=== PATIENT | female | born 1985 | race Caucasian/White ===

== ENCOUNTER 2017-02-14 11:58 | Emergency (ER) | payer MEDICAID, OTHER ==
[~2017-02-14] VITALS: Ht 160 cm; Wt 70.5 kg
[~2017-02-14 11:58] MED LIST: HYDR-569 PO; METH-360 PO; METR500T PO; NAPR-1144 PO
[2017-02-14] MEDS ORDERED: sulfamethoxazole/trimethoprim DS (800/160mg) tablet PO ONE (13:35)
[2017-02-14] MEDS ORDERED: SULF1TAB49 PO (13:37)
[2017-02-14 13:47] VITALS: BP 110/69
== END 2017-02-14 13:48 | disposition home or self-care (01) ==
LOC: ER 11:59
DX: L02.413 Cutaneous abscess of right upper limb (principal); F11.10 Opioid abuse, uncomplicated; I10 Essential (primary) hypertension; F17.200 Nicotine dependence, unspecified, uncomplicated; Z98.890 Other specified postprocedural states; Z98.51 Tubal ligation status; Z88.0 Allergy status to penicillin
CPT/HCPCS: 99282; 99283

== ENCOUNTER 2017-05-17 07:52 | Emergency (ER) | payer MEDICAID, OTHER ==
[~2017-05-17] VITALS: Ht 5283.9 cm; Wt 71.0 kg
[~2017-05-17 07:52] MED LIST changes: -METR500T PO
[2017-05-17 07:53] VITALS: BP 147/89
[2017-05-17] MEDS ORDERED: ketorolac trometh inj. 60 MG/2 ML VIAL IM STA (08:06)
[2017-05-17] MEDS ORDERED: CIPR10DR LEFT EAR (08:08)
[2017-05-17] MEDS ORDERED: CLIN150C2 PO (08:08)
[2017-05-17] MEDS ORDERED: ketorolac trometh. 30mg/ml inj. IM STA (08:10)
== END 2017-05-17 08:33 | disposition home or self-care (01) ==
LOC: ER 07:52
DX: K04.7 Periapical abscess without sinus (principal); I10 Essential (primary) hypertension; Z88.0 Allergy status to penicillin; Z56.0 Unemployment, unspecified
CPT/HCPCS: 96372; 99283; J1885; 99284

== ENCOUNTER 2018-06-22 14:16 | Emergency (ER) | payer MEDICAID, OTHER ==
[~2018-06-22] VITALS: Ht 160 cm; Wt 61.4 kg
[~2018-06-22 14:16] MED LIST changes: +HYDR-4383 PO; -HYDR-569 PO
[2018-06-22] MEDS ORDERED: IBUP-1984 PO (16:12)
[2018-06-22 16:22] VITALS: BP 111/77
== END 2018-06-22 16:24 | disposition home or self-care (01) ==
LOC: ER 14:17
DX: M25.531 Pain in right wrist (principal); I10 Essential (primary) hypertension; F11.90 Opioid use, unspecified, uncomplicated; Z86.69 Personal history of other diseases of the nervous system and sense organs; Z98.51 Tubal ligation status; Z98.890 Other specified postprocedural states; Z56.0 Unemployment, unspecified; Z88.0 Allergy status to penicillin; Z79.899 Other long term (current) drug therapy; W18.39XA Other fall on same level, initial encounter; Y93.89 Activity, other specified; Y92.89 Other specified places as the place of occurrence of the external cause; Y99.8 Other external cause status
CPT/HCPCS: 73110; 73130; 99283

== ENCOUNTER 2018-08-28 20:31 | Emergency (ER) | payer MEDICAID ==
[~2018-08-28] VITALS: Ht 160 cm; Wt 57.1 kg
[2018-08-28 20:47] VITALS: BP 122/78
[2018-08-28] MEDS ORDERED: IBUP-1984 PO (23:12)
[2018-08-28] MEDS ORDERED: ibuprofen tablet 400 MG TABLET PO ONE (23:15)
== END 2018-08-28 23:48 | disposition home or self-care (01) ==
LOC: ER 20:32
DX: S51.011A Laceration without foreign body of right elbow, initial encounter (principal); I10 Essential (primary) hypertension; F11.90 Opioid use, unspecified, uncomplicated; Z86.69 Personal history of other diseases of the nervous system and sense organs; Z98.51 Tubal ligation status; Z98.890 Other specified postprocedural states; Z56.0 Unemployment, unspecified; Z88.0 Allergy status to penicillin; Z79.899 Other long term (current) drug therapy; W22.8XXA Striking against or struck by other objects, initial encounter; Y93.89 Activity, other specified; Y92.89 Other specified places as the place of occurrence of the external cause; Y99.8 Other external cause status
CPT/HCPCS: 12001; 73080; 99283

== ENCOUNTER 2019-03-12 11:27 | Emergency (ER) | payer MEDICAID ==
[~2019-03-12] VITALS: Ht 160 cm; Wt 72.7 kg
[2019-03-12 11:46] VITALS: BP 125/70
[2019-03-12] MEDS ORDERED: azithromycin 250mg tablet PO ONE (12:05)
[2019-03-12] MEDS ORDERED: CefTRIAXone 1000mg IM Kit (w/lidocaine diluent) IM ONE (12:05)
--- NOTE | 2019-03-12 12:40 | NUR ---
LAB CALLED THEY WILL START ON URINE NOW.
[2019-03-12 12:44] LABS: CLARITY,URINE CLOUDY (Clear); COLOR,URINE YELLOW (Yellow); GLUCOSE, URINE NEGATIVE (Neg); KETONES,URINE NEGATIVE (Neg); LEUKOCYTE ESTERASE ,URINE TRACE (Neg); NITRITES, URINE POSITIVE (Neg); OCCULT BLOOD,URINE MODERATE (Neg); PH,URINE 6.5 (4.8-8.0); PROTEIN,URINE 30 mg/dl (Neg); UROBILINOGEN,URINE 0.2 E.U/dL (0.2-1.0)
[2019-03-12 12:45] LABS: UA COLLECTION TYPE CLN CATCH MIDSTREAM; URINE HCG NEGATIVE (NEG)
[2019-03-12 12:51] LABS: BACTERIA,URINE 4+ /HPF (Neg); MUCUS STRANDS MODERATE /LPF (Neg); SQUAMOUS EPITHELIAL CELL,UR FEW /LPF (FEW); WBC CLUMPS,URINE MODERATE /HPF (NEGATIVE); WBC,URINE 30-50 /HPF (0-4)
[2019-03-12] MEDS ORDERED: SULF1TAB49 PO (12:58)
--- NOTE | 2019-03-16 09:52 | NUR ---
NO PHONE NUMBER LISTED FOR PT. I CALLED HER MOTHER STEPHANIE MATIAS. COULD NOT LEAVE A MESSAGE. VOICE MAILBOX FULL
--- NOTE | 2019-03-17 07:55 | NUR ---
called dalia clayton's mother her phone keeps cutting out. she is going to look up guille's phone number and write it down i will call her back in 5 minutes
--- NOTE | 2019-03-17 08:11 | NUR ---
called and left a message on the number that mother gave us. waiting call back
== END 2019-03-12 13:17 | disposition home or self-care (01) ==
LOC: ER 11:28
DX: N39.0 Urinary tract infection, site not specified (principal); N89.8 Other specified noninflammatory disorders of vagina; I10 Essential (primary) hypertension; F17.200 Nicotine dependence, unspecified, uncomplicated; F15.90 Other stimulant use, unspecified, uncomplicated; F11.90 Opioid use, unspecified, uncomplicated; Z86.69 Personal history of other diseases of the nervous system and sense organs; Z98.51 Tubal ligation status; Z98.890 Other specified postprocedural states; Z56.0 Unemployment, unspecified
CPT/HCPCS: 36415; 81001; 81025; 87077; 87088; 87186; 87491; 87591; 96372; 99283; J0696

== ENCOUNTER 2020-03-23 14:09 | Emergency (ER) | payer MEDICAID ==
[~2020-03-23] VITALS: Ht 160 cm; Wt 76.4 kg
[2020-03-23 14:15] VITALS: BP 140/78
[2020-03-23] MEDS ORDERED: CLIN300C54 PO (15:35)
[2020-03-23] MEDS ORDERED: IBUP-1984 PO (15:35)
== END 2020-03-23 15:59 | disposition home or self-care (01) ==
LOC: ER 14:10
DX: K04.7 Periapical abscess without sinus (principal); I10 Essential (primary) hypertension; F15.90 Other stimulant use, unspecified, uncomplicated; F11.90 Opioid use, unspecified, uncomplicated; Z98.51 Tubal ligation status; Z86.69 Personal history of other diseases of the nervous system and sense organs; Z98.890 Other specified postprocedural states; Z56.0 Unemployment, unspecified; Z88.0 Allergy status to penicillin; Z79.2 Long term (current) use of antibiotics; Z79.899 Other long term (current) drug therapy
CPT/HCPCS: 99283

== ENCOUNTER 2020-06-20 10:20 | Emergency (ER) | payer MEDICAID ==
[~2020-06-20] VITALS: Ht 160 cm; Wt 69.2 kg
[2020-06-20 10:28] VITALS: BP 123/77
[2020-06-20] MEDS ORDERED: TOBR5DRO2 OP (11:08)
== END 2020-06-20 11:32 | disposition home or self-care (01) ==
LOC: ER 10:20
DX: H10.9 Unspecified conjunctivitis (principal); G43.909 Migraine, unspecified, not intractable, without status migrainosus; I10 Essential (primary) hypertension; F11.90 Opioid use, unspecified, uncomplicated; F15.90 Other stimulant use, unspecified, uncomplicated; Z87.81 Personal history of (healed) traumatic fracture; Z56.0 Unemployment, unspecified; Z98.891 History of uterine scar from previous surgery; Z98.51 Tubal ligation status; Z88.0 Allergy status to penicillin; Z79.899 Other long term (current) drug therapy; Z79.2 Long term (current) use of antibiotics
CPT/HCPCS: 99283

== ENCOUNTER 2020-10-28 12:06 | Inpatient (IN) | payer MEDICAID ==
[~2020-10-28] VITALS: Ht 160 cm; Wt 63.6 kg
[~2020-10-28 12:06] MED LIST changes: +TOBR5DRO2 OP
[2020-10-28] MEDS ORDERED: vancomycin/NS 1 GM ADD-VANTAGE 250 ML IV ONE (13:35)
--- NOTE | 2020-10-28 13:53 | NUR ---
ATTEMPTED IV BY 2 RN AND 2 ASSISTANT FOREMAN WITH UNABLE TO GET IV AND LABS. [facility] NOTIFIED AND AWARE. STATED DR PEREZ WILL DO AN ULTRASOUND IV WHEN ABLE. PT HAS NO SIGNS OF DISTRESS.
[2020-10-28] MEDS ORDERED: normal saline 1000ML IV soln IV ONE (14:05)
[2020-10-28] MEDS ORDERED: iohexol 350MG/ML 100ml bottle IV ONE (14:59)
[2020-10-28 15:20] LABS: BASOPHILS % (AUTO) 0.2 % (0-1); EOSINOPHILS % (AUTO) 0 % (0-6); HEMATOCRIT 36.4 % (35.0-45.0); HEMOGLOBIN 11.9 g/dl (12.0-16.0); LYMPHOCYTES # (AUTO) 1.5 X10'3 (1.1-4.8); LYMPHOCYTES % (AUTO) 5.4 % (21-51); MEAN CORPUSCULAR HEMOGLOBIN 28.7 PG (27.0-31.0); MEAN CORPUSCULAR HGB CONC 32.8 g/dL (33.0-36.5); MEAN CORPUSCULAR VOLUME 87.3 FL (78-98); MEAN PLATELET VOLUME 8.2 FL (7.4-10.4); MONOCYTES # (AUTO) 1.3 X10'3 (0-0.9); MONOCYTES % (AUTO) 4.8 % (2-12); NEUTROPHILS # (AUTO) 24.6 X10'3 (1.8-7.7); NEUTROPHILS % (AUTO) 89.6 % (42-75); PLATELET COUNT 231 X10'3 (140-440); RED BLOOD COUNT 4.17 X10'6 (4.20-5.60); RED CELL DISTRIBUTION WIDTH 15.3 % (11.5-14.5)
[2020-10-28 15:24] LABS: WHITE BLOOD COUNT 27.4 X10'3 (4.5-11.0)
[2020-10-28] MEDS ORDERED: CefTRIAXone 2gm/D5W 50ml BAG 50 ML IV ONE (15:30)
[2020-10-28 15:35] LABS: ALANINE AMINOTRANSFERASE 31 U/L (12-78); ALBUMIN 2.9 G/DL (3.4-5.0); ALBUMIN/GLOBULIN RATIO 0.6 (1.1-1.5); ALKALINE PHOSPHATASE 85 IU/L (46-116); ANION GAP 10 (8-16); ASPARTATE AMINO TRANSFERASE 16 U/L (10-37); BILIRUBIN,TOTAL 1.1 MG/DL (0.1-1.0); BLOOD UREA NITROGEN 9 MG/DL (7-18); BUN/CREATININE RATIO 11.7 (6.6-38.0); CALCIUM 8.6 MG/DL (8.5-10.1); CHLORIDE 98 MMOL/L (99-107); CREATININE 0.77 MG/DL (0.40-0.90); GLUCOSE 103 MG/DL (70-104); POTASSIUM 3.3 MMOL/L (3.5-5.1); SODIUM 131 MMOL/L (135-145); TOTAL CARBON DIOXIDE 22.7 MMOL/L (24-32); TOTAL PROTEIN 7.9 G/DL (6.4-8.2); eGFR 86 ML/MIN
[2020-10-28 16:01] LABS: ANISOCYTOSIS 1+; PLATELET ESTIMATE NORMAL; TOTAL CELLS COUNTED 100
[2020-10-28] MEDS ORDERED: azithromycin/NS 500mg/250ml 250 ML IV ONE (17:30)
[2020-10-28] MEDS ORDERED: magnesium Cl slow-release 64mg tablet PO PRN (17:40)
[2020-10-28] MEDS ORDERED: potassium Cl 20 mEq SR tablet PO PRN ×2 (17:40)
[2020-10-28] MEDS ORDERED: magnesium 2GM in 50ml NS 50 ML IV PRN (17:40)
[2020-10-28] MEDS ORDERED: magnesium 4gm in 100ml NS 100 ML IV PRN (17:40)
[2020-10-28] MEDS ORDERED: LORazepam 0.5 MG tablet PO PRN (17:40)
[2020-10-28] MEDS ORDERED: LORazepam 2 mg/ml vial IV PRN (17:40)
[2020-10-28] MEDS ORDERED: magnesium hydroxide 30ml (MOM) UD suspension PO PRN (17:40)
[2020-10-28] MEDS ORDERED: mag hydrox/Alum hydrox/simeth 30ml oral suspension PO PRN (17:40)
[2020-10-28] MEDS ORDERED: ondansetron/PF 4mg/2ml inj IV PRN (17:40)
[2020-10-28] MEDS ORDERED: HYDROcodone/acetaminophen 5mg/325mg tablet PO PRN (17:40)
[2020-10-28] MEDS ORDERED: potassium Cl 40MEQ/1/2NS 520ml 520 ML IV PRN ×2 (17:40)
[2020-10-28] MEDS ORDERED: acetaminophen 325mg tablet PO PRN ×2 (17:40)
[2020-10-28] MEDS ORDERED: HYDROmorphone inj. 0.5 MG/0.5 ML DISP.SYRIN IV PRN (17:40)
[2020-10-28 17:51] LABS: CLARITY,URINE SLIGHTLY CLOUDY (Clear); COLOR,URINE YELLOW (Yellow); GLUCOSE, URINE NEGATIVE (Neg); KETONES,URINE 40 mg/dl (Neg); NITRITES, URINE POSITIVE (Neg); OCCULT BLOOD,URINE LARGE (Neg); PROTEIN,URINE TRACE mg/dl (Neg); UA COLLECTION TYPE CLN CATCH MIDSTREAM
[2020-10-28 17:52] LABS: LEUKOCYTE ESTERASE ,URINE NEGATIVE (Neg); UROBILINOGEN,URINE 0.2 E.U/dL (0.2-1.0)
[2020-10-28] MEDS ORDERED: morphine 4 MG/ML inj SYRINge IV ONE ×2 (17:55→19:00)
[2020-10-28] MEDS ORDERED: ondansetron/PF 4mg/2ml inj IV ONE ×2 (17:55→19:00)
[2020-10-28 17:59] LABS: BACTERIA,URINE FEW /HPF (Neg); MUCUS STRANDS FEW /LPF (Neg); SQUAMOUS EPITHELIAL CELL,UR MANY /LPF (FEW)
[2020-10-28 18:00] LABS: URINE AMPHETAMINE SCREEN POSITIVE (Neg); URINE BARBITUATE SCREEN NEGATIVE (Neg); URINE BENZODIAZEPINES SCREEN NEGATIVE (Neg); URINE CANNABINOID SCREEN NEGATIVE (Neg); URINE COCAINE SCREEN NEGATIVE (Neg); URINE METHADONE SCREEN NEGATIVE (Neg); URINE OPIATE SCREEN POSITIVE (Neg); URINE PHENCYCLIDINE SCREEN NEGATIVE (Neg)
[2020-10-28] MEDS ORDERED: NO HOME MEDS (18:04)
[2020-10-28] MEDS ORDERED: vancomycin/NS 1 GM ADD-VANTAGE 250 ML X 1 DOSE IV ONE (18:20)
[2020-10-28 18:31] LABS: PARTIAL THROMBOPLASTIN TIME 32 SECONDS (22-32)
[2020-10-28] MEDS ORDERED: ipratropium/albuterol 3ml nebule NEB ONE (19:05)
[2020-10-28] MEDS: docusate sod 100mg capsule PO SCH (19:17)
[2020-10-28] MEDS: normal saline 1000ml 1,000 ML IV SCH (19:18)
[2020-10-28] MEDS: K and/or MAG REPLACEMENT MC SCH (20:00)
[2020-10-28 20:49] LABS: ABG BASE EXCESS -5.4 mmol/L (-2.0-2.0); ABG HCO3 16.3 mmol/L (22.0-26.0); ABG OXYGEN SATURATION 90.7 % (94-97); ABG PCO2 (T) 23.5 mmHg (32.0-45.0); ABG PO2 (T) 64.3 mmHg (75.0-100.0); ALLEN'S TEST POSITIVE; FCOHb 0.3 % (0.0-3.9); FLOW 3 L/min; FO2Hb 90.4 % (94-97)
[2020-10-28] MEDS ORDERED: temazepam 15mg capsule PO PRN (21:00)
[2020-10-29 02:55] LABS: ALANINE AMINOTRANSFERASE 22 U/L (12-78); ALBUMIN 2.3 G/DL (3.4-5.0); ALBUMIN/GLOBULIN RATIO 0.5 (1.1-1.5); ALKALINE PHOSPHATASE 78 IU/L (46-116); ANION GAP 10 (8-16); ASPARTATE AMINO TRANSFERASE 10 U/L (10-37); BASOPHILS % (AUTO) 0.1 % (0-1); BILIRUBIN,TOTAL 0.8 MG/DL (0.1-1.0); BLOOD UREA NITROGEN 9 MG/DL (7-18); CALCIUM 7.9 MG/DL (8.5-10.1); CHLORIDE 101 MMOL/L (99-107); CREATININE 0.82 MG/DL (0.40-0.90); EOSINOPHILS % (AUTO) 0 % (0-6); GLUCOSE 110 MG/DL (70-104); LYMPHOCYTES # (AUTO) 1.6 X10'3 (1.1-4.8); LYMPHOCYTES % (AUTO) 6.6 % (21-51); MEAN CORPUSCULAR HEMOGLOBIN 29.5 PG (27.0-31.0); MEAN CORPUSCULAR HGB CONC 34.4 g/dL (33.0-36.5); MEAN CORPUSCULAR VOLUME 85.8 FL (78-98); MEAN PLATELET VOLUME 8.4 FL (7.4-10.4); MONOCYTES % (AUTO) 4.2 % (2-12); NEUTROPHILS # (AUTO) 21.7 X10'3 (1.8-7.7); NEUTROPHILS % (AUTO) 89.1 % (42-75); PLATELET COUNT 203 X10'3 (140-440); POTASSIUM 3.2 MMOL/L (3.5-5.1); RED BLOOD COUNT 3.73 X10'6 (4.20-5.60); RED CELL DISTRIBUTION WIDTH 15.2 % (11.5-14.5); SODIUM 135 MMOL/L (135-145); TOTAL CARBON DIOXIDE 23.8 MMOL/L (24-32); TOTAL PROTEIN 7.1 G/DL (6.4-8.2); WHITE BLOOD COUNT 24.4 X10'3 (4.5-11.0); eGFR 80 ML/MIN
[2020-10-29 02:57] LABS: MAGNESIUM 1.9 MG/DL (1.5-2.4)
[2020-10-29] MEDS: docusate sod 100mg capsule PO SCH (08:00)
[2020-10-29] MEDS: K and/or MAG REPLACEMENT MC SCH ×2 (08:00→20:00)
[2020-10-29] MEDS: CefTRIAXone/D5W-Rocephin 1gm 50 ML IV SCH (08:39)
[2020-10-29] MEDS: vancomycin/NS 1 GM ADD-VANTAGE 250 ML IV SCH ×2 (08:39→21:34)
[2020-10-29] MEDS: normal saline 1000ml 1,000 ML IV SCH ×2 (08:40→21:34)
[2020-10-29] MEDS: enoxaparin 40mg/0.4ml syringe SUBCUT SCH (08:48)
--- NOTE | 2020-10-29 09:30 | NUR ---
Pt keeps taking monitor leads and VSs equip off. Pt had taken off NC O2 and when placed back on pulse ox monitor pt with sat 78%. Pt placed on 5L O2 NC and pt sats improving with sat of 96%. Received phone call from hospitalist Dr. Ernandez and was updated on pt status.
[2020-10-29] MEDS ORDERED: guaiFENesin ER 600mg tablet PO SCH (09:35)
[2020-10-29] MEDS: azithromycin/NS 500mg/250ml 250 ML IV SCH (10:16)
[2020-10-29 11:00] VITALS: BP 117/74
[2020-10-29] MEDS: morphine 4 MG/ML inj SYRINge IV PRN ×2 (12:06→17:30)
[2020-10-29 15:00] VITALS: BP 101/68
[2020-10-29] MEDS ORDERED: ipratropium/albuterol 3ml nebule NEB PRN (15:00)
[2020-10-29] MEDS: ipratropium/albuterol 3ml nebule NEB SCH ×2 (15:21→19:45)
--- NOTE | 2020-10-29 17:30 | NUR ---
Attempted to DART patient but she said not now and went back to sleep
[2020-10-29 18:00] VITALS: BP 98/60
[2020-10-29 22:00] VITALS: BP 104/69
--- NOTE | 2020-10-29 22:18 | NUR ---
PAGER ID: [phone] MESSAGE: Lora Cardenas 34F rm #[id number] dx Pnu, sepsis, resp fail. Hx Polysubstance abuse Pt was found smoking an unknown substance from a piece of foil. HR increased from 60s-90s. Security is in the room. Claudette [facility] [id number]
[2020-10-30] MEDS: ipratropium/albuterol 3ml nebule NEB SCH ×4 (00:01→11:00)
[2020-10-30 00:58] VITALS: BP 114/65
[2020-10-30 02:00] VITALS: BP 143/105
[2020-10-30] MEDS: HYDROcodone/acetaminophen 10/325mg tab PO PRN ×2 (02:20→07:59)
--- NOTE | 2020-10-30 04:25 | NUR ---
[place] Medication Administration: For this medication-pass time frame, all medication were reviewed, dispensed, administered and documented per hospital policy by EMY Bowens. [place] documentation: I have reviewed and agree with all interventions, assessments performed and documented by EMY Bowens.
[2020-10-30 06:00] VITALS: BP 110/73
--- NOTE | 2020-10-30 06:15 | NUR ---
Patient in room PCU 3027. I have received report from Claudette QUEVEDO and had the opportunity to ask questions and assume patient care.
[2020-10-30 06:24] LABS: BASOPHILS % (AUTO) 0.2 % (0-1); EOSINOPHILS % (AUTO) 0 % (0-6); HEMATOCRIT 30.2 % (35.0-45.0); HEMOGLOBIN 10.2 g/dl (12.0-16.0); LYMPHOCYTES # (AUTO) 2.7 X10'3 (1.1-4.8); LYMPHOCYTES % (AUTO) 16.1 % (21-51); MEAN CORPUSCULAR HEMOGLOBIN 29.1 PG (27.0-31.0); MEAN CORPUSCULAR HGB CONC 33.7 g/dL (33.0-36.5); MEAN CORPUSCULAR VOLUME 86.4 FL (78-98); MEAN PLATELET VOLUME 8.7 FL (7.4-10.4); MONOCYTES # (AUTO) 0.9 X10'3 (0-0.9); MONOCYTES % (AUTO) 5.3 % (2-12); NEUTROPHILS # (AUTO) 12.9 X10'3 (1.8-7.7); NEUTROPHILS % (AUTO) 78.4 % (42-75); PLATELET COUNT 222 X10'3 (140-440); RED CELL DISTRIBUTION WIDTH 15.6 % (11.5-14.5); WHITE BLOOD COUNT 16.5 X10'3 (4.5-11.0)
[2020-10-30 06:26] LABS: ALANINE AMINOTRANSFERASE 17 U/L (12-78); ALBUMIN 1.9 G/DL (3.4-5.0); ALBUMIN/GLOBULIN RATIO 0.4 (1.1-1.5); ALKALINE PHOSPHATASE 68 IU/L (46-116); ANION GAP 8 (8-16); ASPARTATE AMINO TRANSFERASE 11 U/L (10-37); BILIRUBIN,TOTAL 0.3 MG/DL (0.1-1.0); BLOOD UREA NITROGEN 12 MG/DL (7-18); BUN/CREATININE RATIO 15.4 (6.6-38.0); CALCIUM 7.6 MG/DL (8.5-10.1); CHLORIDE 106 MMOL/L (99-107); CREATININE 0.78 MG/DL (0.40-0.90); GLUCOSE 82 MG/DL (70-104); MAGNESIUM 1.9 MG/DL (1.5-2.4); POTASSIUM 3.7 MMOL/L (3.5-5.1); SODIUM 138 MMOL/L (135-145); TOTAL CARBON DIOXIDE 24.1 MMOL/L (24-32); TOTAL PROTEIN 6.5 G/DL (6.4-8.2); VANCOMYCIN,TROUGH 9.7 UG/ML (6.0-14.0); eGFR 85 ML/MIN
--- NOTE | 2020-10-30 06:29 | NUR ---
Problems reprioritized. Patient report given, questions answered & plan of care reviewed with EMY Trimble.
[2020-10-30] MEDS ORDERED: VANCOMYCIN LEVEL IV ONE (06:30)
[2020-10-30] MEDS: CefTRIAXone/D5W-Rocephin 1gm 50 ML IV SCH (07:56)
[2020-10-30] MEDS: normal saline 1000ml 1,000 ML IV SCH (07:57)
[2020-10-30] MEDS: azithromycin/NS 500mg/250ml 250 ML IV SCH (07:57)
[2020-10-30] MEDS: enoxaparin 40mg/0.4ml syringe SUBCUT SCH (07:58)
[2020-10-30] MEDS ORDERED: vancomycin/NS 1 GM ADD-VANTAGE 250 ML IV SCH (08:00)
[2020-10-30] MEDS: K and/or MAG REPLACEMENT MC SCH (08:00)
--- NOTE | 2020-10-30 09:30 | NUR ---
Patient in room PCU 3027. I have received report from Marine QUEVEDO and had the opportunity to ask questions and assume patient care.
--- NOTE | 2020-10-30 09:31 | NUR ---
I am orienting with Marine RODRIGUES RN to the Unit. tpgether we will take care of the patient
--- NOTE | 2020-10-30 13:06 | NUR ---
Informed Dr. Duque regarding patient wants to go AMA. Does not want to receive medical care. Reviewed need of medical care with patient. She still wants to go AMA regardless of her medical needs.
--- NOTE | 2020-10-30 13:07 | NUR ---
Paged [place]HEL[place] PAGER ID: [phone] MESSAGE: [facility] [id number] Ronald Lora wishes to leave [facility] [place]. please come and consult patient. Della QUEVEDO [phone]
--- NOTE | 2020-10-30 13:09 | NUR ---
Dr. Duque has already consulted patient regarding the need of medical care and to stay for treatment. He would like for the PIV and telemetry to be removed. Have her sign AMA. Medical care was discussed with patient yet she states she does not want any medical care and wants to leave the hospital now.
--- NOTE | 2020-10-30 13:10 | NUR ---
Dr. Duque called and had already informed the patient of the importance of medical care. he instructed to have her sign the AMa form, remove her IV access and Telemetry and she may go. I explained to her in detail the need for medical treatment. She continues to decline any and all treatment. She wants to leave hospital regardless of medical need
--- NOTE | 2020-10-30 13:30 | NUR ---
Patient signed AMA and Both Sherita and Marine QUEVEDO explained the AMA process. Patient wants to leave now
--- NOTE | 2020-10-30 13:35 | NUR ---
patient signed AMA form. Discussing regarding medical need yet Patient continued to decline, Removed IV with cannula intact, No redness or irritation at IV site, Telemetry removed. Patient was given all patient belongings, Security called and patient was walked out of hospital.
[2020-10-31] MEDS ORDERED: VANCOMYCIN LEVEL IV ONE (07:30)
== END 2020-10-30 13:36 | disposition left against medical advice (07) | DRG 720 ==
LOC: ER 12:07 → ED HOLD 17:43 → EDBEDREQ 23:56 → PCU 3S 10-29 10:39
PROVIDERS: ADMIT Family Medicine; ATTEND Family Medicine
PROC: 02HV33Z Insertion of Infusion Device into Superior Vena Cava, Percutaneous Approach (ICD-10-PCS; principal; 2020-10-28)
PROC: B32T1ZZ Computerized Tomography (CT Scan) of Left Pulmonary Artery using Low Osmolar Contrast (ICD-10-PCS; 2020-10-28)
PROC: B3201ZZ Computerized Tomography (CT Scan) of Thoracic Aorta using Low Osmolar Contrast (ICD-10-PCS; 2020-10-28)
PROC: B32S1ZZ Computerized Tomography (CT Scan) of Right Pulmonary Artery using Low Osmolar Contrast (ICD-10-PCS; 2020-10-28)
DX: A41.9 Sepsis, unspecified organism (principal); J96.01 Acute respiratory failure with hypoxia; J69.0 Pneumonitis due to inhalation of food and vomit; F03.90 Unspecified dementia, unspecified severity, without behavioral disturbance, psychotic disturbance, mood disturbance, and anxiety; E87.1 Hypo-osmolality and hyponatremia; Z20.822 Contact with and (suspected) exposure to COVID-19; Z53.29 Procedure and treatment not carried out because of patient's decision for other reasons; F15.10 Other stimulant abuse, uncomplicated; F17.210 Nicotine dependence, cigarettes, uncomplicated; E87.6 Hypokalemia; F11.20 Opioid dependence, uncomplicated; I10 Essential (primary) hypertension; N30.01 Acute cystitis with hematuria; Z98.891 History of uterine scar from previous surgery; Z88.0 Allergy status to penicillin; Z98.51 Tubal ligation status; Z56.0 Unemployment, unspecified; Z71.6 Tobacco abuse counseling
CPT/HCPCS: 36415; 36600; 71045; 71275; 80053; 80202; 80305; 81001; 82803; 83605; 83735; 83880; 84145; 84484; 85007; 85018; 85025; 85610; 85651; 85730; 87040; 87070; 87635; 93005; 93306; 94640; 94760; 96365; 96368; 99291; 99292; C9803; G0378; J0456; J0696; J1650; J2270; J2405; J3370; J3480; J7030; Q9967

== ENCOUNTER 2022-08-26 20:43 | Emergency (ER) | payer MEDICAID ==
[~2022-08-26] VITALS: Ht 160 cm; Wt 79.5 kg
[~2022-08-26 20:43] MED LIST changes: -HYDR-4383 PO; -METH-360 PO; -NAPR-1144 PO; +NO HOME MEDS; -TOBR5DRO2 OP
[2022-08-26 20:50] VITALS: BP 126/90
[2022-08-26] MEDS ORDERED: DOXYCYCLINE 100MG CAPSULE PO STA (21:20)
[2022-08-26] MEDS ORDERED: LIDOcaine 1% W/epiNEPHrine 1:100,000 20ml vial SQ ONE (21:20)
[2022-08-26] MEDS ORDERED: clindamycin 150mg capsule PO ONE (21:20)
[2022-08-26] MEDS ORDERED: DOXY-356 PO (21:32)
[2022-08-26] MEDS ORDERED: IBUP-1984 PO (21:32)
[2022-08-26] MEDS ORDERED: CLIN300C70 PO (21:32)
[2022-08-26] MEDS ORDERED: oxyCODONE/APAP 5-325mg tablet PO STA (21:51)
== END 2022-08-26 22:31 | disposition home or self-care (01) ==
LOC: ER 20:44
DX: S61.511A Laceration without foreign body of right wrist, initial encounter (principal); I10 Essential (primary) hypertension; Z88.0 Allergy status to penicillin; Z88.1 Allergy status to other antibiotic agents; Z79.899 Other long term (current) drug therapy; X58.XXXA Exposure to other specified factors, initial encounter; Y93.89 Activity, other specified; Y92.89 Other specified places as the place of occurrence of the external cause; Y99.8 Other external cause status
CPT/HCPCS: 12001; 73110; 99284; J7030; 99283; A6449